=== PATIENT | male | born 1945 | race Caucasian/White ===

== ENCOUNTER 2017-09-06 05:47 | Inpatient (IN) | payer OTHER, MEDICARE ==
[~2017-09-06] VITALS: Ht 172.7 cm; Wt 70.0 kg
[2017-09-06] VITALS (15 sets, daily range): BP systolic 116–144; BP diastolic 53–63; PULSE 65–92; RESP 8–16; TEMP 97.9–99.2; O2SAT 95–99
[~2017-09-06 05:47] MED LIST: AMBI12.5; ATOR20TA42; CENTTAB9; DIAZ5; OMEP20CA5; PERC10TA26; SAWPOW; TAMS0.4C67; VIT C; VIT D; VIT E
[2017-09-06] MEDS ORDERED: VANCOMYCIN HCL 1000 MG VIAL ONE ×2 (06:29→06:44)
[2017-09-06] MEDS ORDERED: HEPARIN SODIUM - SQ 10,000 UNITS/ML VIAL ONE (06:29)
[2017-09-06] MEDS ORDERED: METOPROLOL TARTRATE 25 MG TAB PO SCH (06:30)
[2017-09-06] MEDS ORDERED: METOPROLOL TARTRATE 25 MG TAB PO PRN (06:30)
[2017-09-06] MEDS ORDERED: CHLORHEXIDINE GLUCONATE 2 % 1 PACK (2 CLOTHS) TOPICAL PRN (06:30)
[2017-09-06] MEDS ORDERED: INSULIN REGULAR 100 UNITS in NS 100 ML IV PRN (06:30)
[2017-09-06] MEDS ORDERED: INSULIN HUMAN REGULAR 1,000 UNITS/10 ML VIAL SQ PRN (06:30)
[2017-09-06] MEDS ORDERED: VANCOMYCIN 1000 MG in NS IRR BTL 1000 ML IRRIGATION SCH (06:30)
[2017-09-06] MEDS ORDERED: SODIUM CHLORID 0.9% 500 ML IV PRN (06:30)
[2017-09-06] MEDS ORDERED: POVIDONE IODINE 5% (ANTISEPSIS KIT) 4 APPLICATIONS EACH NARE PRN (06:30)
[2017-09-06] MEDS ORDERED: PAPAVERINE 60 MG-NITROGLYCERIN 100 MCG-DILTIAZEM 100 MG in NS 100 ML IRRIGATION SCH ×4 (06:30)
[2017-09-06] MEDS ORDERED: SODIUM CHLORIDE 0.9% FLUSH 10 ML FLUSH IV FLUSH PRN ×3 (06:30→12:45)
[2017-09-06] MEDS ORDERED: CHLORHEXIDINE GLUCONATE 4% SOLN 120 ML BTL TOPICAL SCH (06:30)
[2017-09-06] MEDS ORDERED: OMEP20TA93 PO (06:33)
[2017-09-06] MEDS ORDERED: ZOLP12.5 PO (06:33)
[2017-09-06] MEDS ORDERED: TAMS5CAP PO (06:33)
[2017-09-06] MEDS ORDERED: ATOR20TA15 PO (06:33)
[2017-09-06] MEDS ORDERED: OXYC1TAB36 PO (06:33)
[2017-09-06] MEDS ORDERED: DIAZ5TAB PO (06:33)
[2017-09-06] MEDS ORDERED: MULTTAB67 PO (06:33)
[2017-09-06] MEDS ORDERED: SODIUM CHLOR 0.9% 250 ML INJ 250 ML ONE (06:45)
[2017-09-06] MEDS: LACTATED RINGER'S 1000 ML IV PRN ×2 (07:00→15:35)
[2017-09-06 07:17] LABS: BLOOD, URINE NEG (NEG); COMMENT (UR) CULT NOT INDICATED; CULTURE IF INDICATED CULT NOT INDICATED; GLUCOSE,URINE NEG (NEG); KETONE, URINE NEG (NEG); MUCUS URINE FEW /lpf (OCC); NITRITE,URINE NEG (NEG); PH, URINE 7.5 (5.0-8.5); SQUAMOUS EPITHELIAL CELL URINE <1 /hpf (0-5); URINE COLOR YELLOW (YELLW/STRAW)
[2017-09-06] MEDS ORDERED: FENT50DI T-DERMAL (07:19)
[2017-09-06] MEDS ORDERED: FLUT1SPR5 EACH NARE (07:19)
[2017-09-06] MEDS: VANCOMYCIN 1000 MG/NS 250 ML IV SCH ×4 (07:25→09:30)
[2017-09-06] MEDS ORDERED: CUSTODIOL HTK IRR SOLN 2,000 ML ONE (07:54)
[2017-09-06] MEDS ORDERED: POTASSIUM CHLORIDE 40 MEQ/20 ML VIAL ONE (07:54)
[2017-09-06] MEDS ORDERED: HEPARIN SODIUM - IV 10,000 UNITS/10 ML VIAL ONE (07:55)
[2017-09-06] MEDS ORDERED: SODIUM BICARBONATE 8.4% INJ 150 ML ONE (07:55)
[2017-09-06] MEDS ORDERED: ALBUMIN 25% INJ 50 ML IV ONE (07:55)
[2017-09-06] MEDS ORDERED: MANNITOL INJ 50 ML ONE (07:56)
[2017-09-06] MEDS: MUPIROCIN 2% OINT 22 GM TUBE EACH NARE SCH ×2 (09:00→21:00)
[2017-09-06] MEDS ORDERED: SUFentanil INJ 250 MCG/5 ML AMP ONE (09:04)
[2017-09-06] MEDS ORDERED: fentaNYL CITRATE 1000 MCG/20 ML VIAL IV ONE (12:00)
[2017-09-06] MEDS ORDERED: CARDIOPLEGIC IRR 2,000 ML IRRIGATION ONE (12:00)
[2017-09-06] MEDS ORDERED: NITROGLYCERIN 50 MG/DEXTROSE 5% SOLN 250 ML BTL IV ONE (12:00)
[2017-09-06] MEDS ORDERED: PROPOFOL 500 MG/50 ML BTL IV ONE (12:00)
[2017-09-06] MEDS ORDERED: CALCIUM CHLORIDE 10% SOLN 1 GRAM/10 ML SYR IV ONE (12:00)
[2017-09-06] MEDS ORDERED: TRANEXAMIC ACID INJ 1,000 MG/10 ML AMP IV ONE (12:00)
[2017-09-06] MEDS ORDERED: ePHEDrine/NS 25 MG/5 ML SYRINGE IV ONE (12:00)
[2017-09-06] MEDS ORDERED: PHENYLEPH/NS 1000 MCG/10 ML SYR IV ONE (12:00)
[2017-09-06] MEDS ORDERED: VECURONIUM BROMIDE 10 MG VIAL IV ONE (12:00)
[2017-09-06] MEDS ORDERED: MIDAZOLAM HCL 2 MG/2 ML VIAL IV ONE (12:00)
[2017-09-06] MEDS ORDERED: MAGNESIUM SULFATE 1 GM/2 ML VIAL IV ONE (12:00)
[2017-09-06] MEDS ORDERED: HEPARIN SODIUM - SQ 10,000 UNITS/ML VIAL OTHER ONE (12:00)
[2017-09-06] MEDS ORDERED: PHENYLEPHRINE HCL 10 MG/ML VIAL IV ONE (12:00)
[2017-09-06] MEDS ORDERED: DOBUTamine PREMIX DRIP 250 ML IV SCH (12:31)
[2017-09-06] MEDS ORDERED: LACTATED RINGER'S 1000 ML INJ 500 ML IV PRN (12:31)
--- NOTE | 2017-09-06 12:40 | PD.OP ---
cc: Dinah Dorantes MD Operative Report Date of Surgery: Sep 06, 2017 Preoperative Diagnosis: Postoperative Diagnosis: Procedure: 1. Coronary Artery Bypass Grafting x 1 with left internal mammary artery (LORD) to left anterior descending (LAD) 2. Aortic Valve Replacement with 25 mm Medtronic Mosaic Tissue Valve Surgeon: Dinah Dorantes Air Brush Decorator(s): Lenny Moncada Operation and Findings: PREPROCEDURE DIAGNOSES 1. Severe Left Anterior Descending (LAD) Coronary Artery Disease. 2. Critical Aortic Valve Stenosis 3. Lymphoma s/p Radiation POSTPROCEDURE DIAGNOSES Same SURGICAL PROCEDURE 1. Coronary Artery Bypass Grafting x 1 with left internal mammary artery (LORD) to left anterior descending (LAD) 2. Aortic Valve Replacement with 25 mm Medtronic Mosaic Tissue Valve SURGEON Dinah Dorantes MD GENERATOR TECHNICIAN ANA Horn PA-C ANESTHESIA General endotracheal [employer] LETTER CARRIER Chemo White, [employer] PRODUCT CONSULTANT Silviano Mcdermott MD PREPARATION ChloraPrep. COUNTS Needle, sponge, and instrument counts were correct. DRAINS Two 32-Turkmen mediastinal tubes. COMPLICATIONS None. INDICATIONS FOR PROCEDURE The patient is a 72-year-old presenting with shortness of breath and known . Patient was noted to have proximal LAD coronary artery disease in addition to severe . The patient is being brought to the operating room for surgical revascularization and AVR therapy. PROCEDURE Patient was brought to the operating room and placed supine on the OR table. Following the induction of adequate general endotracheal anesthesia and placement of appropriate monitoring devices, the patient was prepped and draped in standard sterile fashion. A median sternotomy was performed and the left internal mammary artery dissected free off the posterior sternal table. The patient was systemically heparinized and anticoagulation monitored by serial ACT measurements. The internal mammary artery had good pulsatile flow in it and was a good-caliber conduit. The pericardium was then divided in the midline , the cradle created and target analyzed. At this point, the left internal mammary artery was anastomosed to the mid LAD (2 mm) in an end-to-side fashion using 7-0 Prolene, in an off-pump fashion using the Maquet stabilizing system. Then 2 pursestring sutures of 2-0 Ethibond were placed on the aorta proximal to the takeoff of the innominate artery, another was placed in the right atrial appendage. At this point, aortic and 2-stage venous cannulas were introduced and attached to the arterial and venous components of the bypass circuit respectively. Antegrade cardioplegia cannula and a left ventricular vent, through the right superior pulmonary vein, were also placed. The patient was placed on cardiopulmonary bypass and core cooling initiated to a temperature of 32 degrees centigrade. The crossclamp was applied and 1.5 L of cardioplegia solution (Long Term HTK) given in an antegrade fashion into the root, in addition to topical cooling with slushed saline. Upon achieving adequate diastolic arrest of the heart a transverse aortotomy was performed extending towards the non-coronary annulus. The aortic valve was noted to be very heavily calcified with the calcification extending into ascending aorta. The valve was excised and sent for microbiologic analysis. Circumferential decalcification was performed. Horizontal mattress sutures of pledgeted 2-0 Ethibond were placed circumferentially in the aortic annulus with the pledgets on the ventricular side. After adequate sizing, a 25 mm Medtronic Mosaic tissue valve was brought in the surgical field and the sutures passed through the skirt. The valve was situated supra-annular. The sutures were tied with Cor-knots. This appeared to be a good fit. Gradual rewarming was initiated and the aortotomy closed in 2 layers. This was with 4-0 Prolene; the 1st layer being horizontal mattress, the 2nd layer being running baseball stitch. The cross clamp was removed and upon achieving normothermic cardiac activity, the patient was weaned off of the cardiopulmonary bypass circuit without any difficulty. Transesophageal echocardiography revealed a well-situated aortic prosthesis with no evidence of perivalvular leak and no aortic stenosis or aortic regurgitation. Protamine was administered. Decannulation was performed and all sites were inspected for hemostasis. All anastomotic sites were inspected and appeared to be hemostatic and patent. Strict hemostasis was assured. The closure was undertaken. 2 chest tubes were placed. The pericardium was reapproximated in the midline. The sternum was approximated using sternal wires. The muscular and fascial layers were then closed in 3 layers. The endoscopic vein harvest site was closed in 2 layers. The patient tolerated the procedure well and was transferred to CVICU in stable condition. Dinah Dorantes MD Sep 06, 2017 12:40
[2017-09-06] MEDS ORDERED: ACETAMINOPHEN 325 MG TAB PO PRN (12:45)
[2017-09-06] MEDS ORDERED: INSULIN REGULAR (IV INFUSION) 100 UNITS in SODIUM CHLORIDE 0.9% INJ 99 ML IV PRN (12:45)
[2017-09-06] MEDS ORDERED: CLEVIDIPINE INJ 50 ML IV PRN (12:45)
[2017-09-06] MEDS ORDERED: Post-op Orders (for Pharmacy) OTHER ONE (12:45)
[2017-09-06] MEDS ORDERED: METOPROLOL TARTRATE 5 MG/5 ML VIAL IV PUSH PRN (12:45)
[2017-09-06] MEDS ORDERED: POTASSIUM CHLOR 20 MEQ PREMIX 100 ML IV PRN ×3 (12:45)
[2017-09-06] MEDS ORDERED: ACETAMINOPHEN 650 MG SUPP RECTAL PRN (12:45)
[2017-09-06] MEDS ORDERED: DOPamine INJ PREMIX 500 ML IV PRN (12:45)
[2017-09-06] MEDS ORDERED: DEXMEDETOMIDINE INJ 200 MCG in SODIUM CHLORIDE 0.9% INJ 50 ML IV PRN (12:45)
[2017-09-06] MEDS ORDERED: CALCIUM CHLORIDE INJ 1 GM in SODIUM CHLORIDE 0.9% INJ 100 ML IV PRN (12:45)
[2017-09-06] MEDS ORDERED: RESP: RACEPINEPHRINE 2.25% 0.5 ML NEB NEB PRN (12:45)
[2017-09-06] MEDS ORDERED: NITROGLYCERIN-D5W 50 MG/250 ML 250 ML IV PRN (12:45)
[2017-09-06] MEDS ORDERED: SODIUM BICARBONATE 8.4% SOLN 50 MEQ/50 ML VIAL IV PUSH PRN ×2 (12:45)
[2017-09-06] MEDS ORDERED: ALBUMIN 5% INJ 250 ML IV PRN (12:45)
[2017-09-06] MEDS ORDERED: POTASSIUM CHLORIDE 20 MEQ CONTROLLED RELEASE TAB PO PRN ×2 (12:45)
[2017-09-06] MEDS ORDERED: MEPERIDINE HCL 25 MG/ML VIAL IV PUSH PRN (12:45)
[2017-09-06] MEDS ORDERED: PHENYLEPHRINE INJ 40 MG in DEXTROSE 5% IN WATE 500 ML INJ 496 ML IV PRN ×2 (12:45)
[2017-09-06] MEDS ORDERED: hydrALAZINE HCL 20 MG/ML VIAL IV PUSH PRN (12:45)
[2017-09-06] MEDS ORDERED: CALCIUM CHLORIDE 10% 1 GRAM/10 ML VIAL IV PUSH PRN (12:45)
[2017-09-06] MEDS ORDERED: DEXTROSE 50% IN WATER 50 ML VIAL(D50) IV PUSH PRN (12:45)
[2017-09-06] MEDS ORDERED: RESP: ALBUTEROL 2.5 MG/IPRATROPIUM 0.5 MG NEB (PRN) NEB (12:45)
[2017-09-06] MEDS ORDERED: ACETAMINOPHEN/HYDROcodone 325 MG/5 MG TAB PO PRN (12:45)
[2017-09-06] MEDS ORDERED: MAGNESIUM SULFATE INJ 2 GM in SODIUM CHLORIDE 0.9% INJ 100 ML IV PRN ×4 (12:45)
--- NOTE | 2017-09-06 13:36 | PD.CAR.PN ---
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 nurse with c/o of progressive SOB, cardiac workup leading to cardiac cath which revealed critical prox LAD stenosis , echo showed preserved LV function with severe , pt was admitted electively for CABG and AVR PMH: , CAD ( stent) , non-Hodgkins lymphoma, discitis and osteomyelitis of spine 1997, kidney stones, chronic prostatitis Objective: Vital Signs Date Time Temp Pulse Resp B/P (MAP) Pulse Ox O2 Delivery O2 Flow Rate FiO2 09/06/17 12:57 98 50 09/06/17 07:00 98.7 74 18 151/89 (109) 97 Labs: Laboratory Tests Test 09/06/17 06:54 Urine Color YELLOW (YELLW/STRAW) Urine Turbidity HAZY (CLEAR) Urine pH 7.5 (5.0-8.5) Urine Specific [place] 1.018 (1.002-1.035) Urine Protein NEG mg/dL (NEG-TRACE) Urine Glucose (UA) NEG mg/dL (NEG) Urine Ketones NEG mg/dL (NEG) Urine Occult Blood NEG (NEG) Urine Nitrite NEG (NEG) Urine Bilirubin NEG (NEG) Urine Urobilinogen LESS THAN 2.0 MG/DL (LESS Urine Leukocyte Esterase NEG (NEG) Urine RBC 1 /hpf (0-3) Urine WBC 1 /hpf (0-5) Urine Squamous Epithelial Cells <1 /hpf (0-5) Urine Mucus FEW /lpf (OCC) Microscopic Urinalysis Comment CULT NOT INDICATED Geraldine Pino Sep 06, 2017 13:36
[2017-09-06] MEDS: DEXTROSE 50% IN WATER 50 ML VIAL(D50) IV PUSH PRN ×2 (13:38→16:18)
--- NOTE | 2017-09-06 13:41 | HHI.FF ---
Face to Face Verification Diagnosis: (1) Hx of non-Hodgkin's lymphoma (2) S/P AVR (aortic valve replacement) (3) S/P CABG x 1 (4) Coronary artery disease (5) Aortic stenosis Home Health Nursing Order: Signs/symptoms of disease process Medication education-adverse effect Wound care and dressing changes Nursing assessment with vital signs Instructions: Heart and Vascular Surgery patients *Special attention to sternal dressing Mandatory frequency Assess and evaluation, 4 days in a row The next week 3X week 2 times a week for 4 weeks 1 time a week for 5 weeks Schedule Heart and Vascular patients for full 60 day certification period Initial visit Review Open Heart Surgery Discharge Instructions (Sternal precautions, Activity, Elastic hose, Incision care, Driving, Incentive spirometry, Smoking, [place], Work and other) Need Betadine to paint incision Medication reconciliation Importance of follow up care/ check on appointments Make calendar record temperature daily When to call [facility] at Home nurse, review instructions, phone list Incentive Spirometry, demonstration Visit 1- Begin discharge instruction for patient family and/ or caregiver using teach back method- Signs and symptoms of infection Disease characteristics Medicines and side effects Foods and nutrition/ appetite Infection control/ hand washing/ hygiene Visit 2- Continue teaching Discharge instructions- include additional information on smoking cessation , sternal dressing (sternal vac) Visit 3- Continue teaching- Cough and deep breathing, incision monitoring. Choose my plate Visit 4- Continue teaching- Discuss limitations Discuss how they are feeling Discuss progress toward goals Remaining visits- continue teaching and monitoring Incentive spirometry Q1 hr x 10, while awake, also use acapella device hourly whole awake Sternal Breast Bone Precautions: NO pushing or pulling, ( pt must use sternal pillow to support chest with all activities and with coughing ( takes up to 3 months breast bone to heal ) Daily incision care: ok to shower daily, no tub bath. Wash all incisions with liquid dial soap, clean wash cloth to each site, rinse and pat dry. Observe for any signs of infection, such as drainage which is dark yellow, cantrell, green or foul smelling. Immediately report to the surgeon any drainage from the chest incision, or legs, and for any abnormal drainage from the chest tube sites. Notify surgeon if any temp >101.5 degrees F. When specialty dressing removed/ or if you do not have one, continue to shower daily as above, then rinse and pat incision dry and paint with betadine daily x 5 days. Allow steri strips to fall off if you have any. Avoid lotions, creams, salves, oils, etc. for the first month Please see attached forms for additional instructions regarding post Open Heart specialty wound vacuum dressings. VILLA or Prevena , Dressing to be removed by Nursing staff on __/ F/U appointment: as per DC instructions: PCP in 2 weeks, CV surgeon 2 weeks, [employer] 3-4 weeks For any questions regarding incisions/ dressing / meds / post op care or above Symptoms, Monday 8am-5pm Heart & Vascular Surgery Office ( Dr. Dorantes & Dr. Bhakta), After Hours / Nights (5pm -8am) Weekends and Holidays Please call [facility] Cardiac [facility] Unit ([facility]) Charge Nurse Single Use Negative Wound Therapy System Caregiver Instruction Sheet 1. A Prevena dressing system was applied to the chest incision during surgery , to promote wound healing. It works via a suction device (negative pressure wound therapy) to remove low to moderate levels of exudate (drainage) and infectious materials. We recommend that the device stay in place for up to seven days, from day of surgery. 2. Day of Surgery___// Day of Removal ____/ 3. The dressing should only be removed by a health childcare attendant. Please arrange removal of device to coincide with Home Health visit and or with Nursing staff at Rehab 4. If skin reddening or irritation of skin occurs, or excessive drainage, please notify the Cardiovascular Surgeons office at [phone]. 5. Light showering is permissible; however the pump should be disconnected and placed in safe location, where it will not get wet. The dressing should not be exposed to direct spray or submerged in water. No bath tub / shower only. Ensure the end of the tubing attached to the dressing is facing down so that water does not enter the top of the tube. 6. To remove Prevena dressing: press purple button to turn off device / remove the suction. Then disconnect the tubing from the pump. The fixation strips should be stretched away from the skin and the dressing lifted at one corner and peeled back until it has been fully removed. 7. After removal, it is ok to shower daily using liquid dial soap and clean wash cloth, rinse and pat dry, and leave incision open to air dry. For any concerns regarding Prevena dressing, and or wounds, please contact Lexis Gamble, patient navigator at [phone] or notify the Cardiovascular Surgeons office at [phone]. I have seen patient Asael Nelson on 09/06/17. My clinical findings support the need for the requested home health care services because: Deconditioned w/ increased weakness I certify that my clinical findings support that this patient is homebound because: Post-op weakness Geraldine Pino Sep 06, 2017 13:41
[2017-09-06] MEDS ORDERED: MORPHINE SULFATE 2 MG/ML INJ IV PUSH PRN (13:45)
[2017-09-06] MEDS: ACETAMINOPHEN 1000 MG/100 ML 100 ML IV SCH ×2 (13:47→17:33)
--- NOTE | 2017-09-06 14:32 | RADRPT ---
EXAM DATE/TIME: 09/06/2017 13:33 [facility] COMPARISON: No previous studies available for comparison. INDICATIONS : Post CABG. MEDICAL HISTORY : Heart. SURGICAL HISTORY : None. ENCOUNTER: Initial ACUITY: 1 day PAIN SCORE: Non-responsive. LOCATION: Bilateral chest FINDINGS: ETT at the level of the clavicles. Right IJ central line with tip in the proximal right atrium. Media stinal drains and left apical chest tube in place. Mild bibasilar patchy airspace disease. Cardiomedi astinal contours are within normal limits. Bony thorax is intact. CONCLUSION: 1. Expected immediate post surgical features of CABG with tubes and lines, as above. 2. Patchy bilateral lower lobe airspace disease, likely atelectasis. Ricky Jhaveri MD on September 06, 2017 at 14:26 Board Certified Radiologist. This report was verified electronically.
[2017-09-06] MEDS: KETOROLAC TROMETHAMINE 30 MG/ML (IVP) VIAL IV PUSH PRN ×2 (15:17→21:14)
[2017-09-06] MEDS: RESP: ALBUTEROL 2.5 MG/IPRATROPIUM 0.5 MG NEB (SCH) NEB ×2 (16:04→20:51)
[2017-09-06] MEDS: SODIUM CHLORIDE 0.9% FLUSH 10 ML FLUSH IV FLUSH SCH (21:00)
[2017-09-06] MEDS: VANCOMYCIN INJ 1,000 MG in SODIUM CHLOR 0.9% 250 ML INJ 250 ML IV SCH (22:19)
[2017-09-06] MEDS: AMIODARONE 200 MG TAB PO SCH (23:11)
[2017-09-07] VITALS (17 sets, daily range): BP systolic 81–139; BP diastolic 53–68; PULSE 80–109; RESP 12–18; TEMP 98–99.8; O2SAT 92–98
[2017-09-07] MEDS: ACETAMINOPHEN/HYDROcodone 325 MG/5 MG TAB PO PRN ×6 (00:25→22:38)
[2017-09-07] MEDS: ACETAMINOPHEN 1000 MG/100 ML 100 ML IV SCH ×2 (00:32→08:42)
[2017-09-07] MEDS: ONDANSETRON HCL 4 MG/2 ML VIAL IV PUSH PRN (01:32)
[2017-09-07] MEDS: KETOROLAC TROMETHAMINE 30 MG/ML (IVP) VIAL IV PUSH PRN ×2 (02:26→09:09)
[2017-09-07] MEDS: RESP: ALBUTEROL 2.5 MG/IPRATROPIUM 0.5 MG NEB (SCH) NEB ×5 (03:53→19:38)
[2017-09-07 05:55] LABS: HEMATOCRIT 29.6 % (39.0-51.0); MEAN CELL VOLUME 87.1 FL (80.0-100.0); MEAN CORPUSCULAR HEMOGLOBIN 29.6 PG (27.0-34.0); PLATELET COUNT 150 TH/MM3 (150-450); RED CELL DISTRIBUTION WIDTH 13.3 % (11.6-17.2); REVIEW FLAG FINAL; WHITE BLOOD COUNT 12.4 TH/MM3 (4.0-11.0)
[2017-09-07 06:01] LABS: BICARBONATE 26.5 MEQ/L (21.0-32.0); POTASSIUM 3.8 MEQ/L (3.5-5.1)
--- NOTE | 2017-09-07 06:15 | RADRPT ---
EXAM DATE/TIME: 09/07/2017 04:48 [facility] COMPARISON: CHEST SINGLE AP, September 06, 2017, 13:33. INDICATIONS : Shortness of breath, possible pneumothorax. MEDICAL HISTORY : Cardiac disease. SURGICAL HISTORY : CABG. ENCOUNTER: Subsequent ACUITY: 2 days PAIN SCORE: 10/10 LOCATION: Bilateral chest FINDINGS: Interval extubation and removal of gastric tube. Right mediastinal and left chest drainage tubes sta ble in position. Right internal jugular catheter tip at the cavoatrial junction. Persistent partial ly consolidative infiltrates in the left lower lung and non-consolidative traits of the right lung. The heart is normal size. Stable sternal wire sutures. CONCLUSION: Persistent left lower lung consolidative infiltrates and non-consolidative infiltrates in the right l ower lung. Gurdeep Umanzor MD on September 07, 2017 at 6:12 Board Certified Radiologist. This report was verified electronically.
[2017-09-07] MEDS: PANTOPRAZOLE SOD 40 MG DELAYED RELEASE TAB PO SCH (06:29)
[2017-09-07] MEDS: MUPIROCIN 2% OINT 22 GM TUBE EACH NARE SCH (08:39)
[2017-09-07] MEDS: ASPIRIN 81 MG CHEW TAB PO SCH (08:39)
[2017-09-07] MEDS: AMIODARONE 200 MG TAB PO SCH ×2 (08:39→21:00)
[2017-09-07] MEDS: SODIUM CHLORIDE 0.9% FLUSH 10 ML FLUSH IV FLUSH SCH ×2 (08:39→21:01)
[2017-09-07] MEDS ORDERED: SOD PHOSPHATE/SOD BIPHOSPHATE (ADULT) ENEMA 133ML RECTAL PRN (09:00)
[2017-09-07] MEDS ORDERED: BISACODYL 10 MG SUPP RECTAL PRN (09:00)
[2017-09-07] MEDS ORDERED: GLUCAGON 1 MG/ML VIAL OTHER PRN (09:00)
[2017-09-07] MEDS ORDERED: DEXTROSE 50% IN WATER 50 ML VIAL(D50) IV PUSH PRN (09:00)
[2017-09-07] MEDS ORDERED: MULTIVITAMIN INJ 10 ML, THIAMINE INJ 500 MG, FOLIC ACID INJ 1 MG in SODIUM CHLORID 0.9%... IV SCH (09:00)
--- NOTE | 2017-09-07 09:07 | PD.CAR.PN ---
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 Coronary Artery Bypass Grafting x 1 with left internal mammary artery (LORD) to left anterior descending (LAD) 2. Aortic Valve Replacement with 25 mm Medtronic Mosaic Tissue Valve extubated after surgery , crystalloid 2500cc, 500cc cell saver , EBL 1500cc, urine 1900cc 09/07 up in chair , on nasal cannula weaning off insulin gtt asking about his fentanly patch , will use prn fentanly IV today / with po meds , eval to resume patch in am OOB, pulm toileting transfer to stepdown Objective: GENERAL: A&O x 3 SKIN: Warm and dry. prevena to chest , has small skin tear on left upper back HEAD: Normocephalic. EYES: No scleral icterus. No injection or drainage. NECK: Supple, trachea midline. No JVD or lymphadenopathy. CARDIOVASCULAR: Regular rate and rhythm without murmurs, gallops, or rubs. RESPIRATORY: Breath sounds equal bilaterally. No accessory muscle use. diminished in bases, chest tube 335/ 12 hrs no air leak GASTROINTESTINAL: Abdomen soft, non-tender, nondistended. MUSCULOSKELETAL: No cyanosis, or edema. BACK: Nontender without obvious deformity. No CVA tenderness. Vital Signs Date Time Temp Pulse Resp B/P (MAP) Pulse Ox O2 Delivery O2 Flow Rate FiO2 09/07/17 07:45 16 09/07/17 05:30 90 121/63 09/07/17 04:00 93 Nasal Cannula 2.00 09/07/17 03:26 14 09/07/17 03:00 80 09/07/17 03:00 99.8 80 12 121/64 (83) 96 139/55 (83) 09/07/17 01:02 14 09/07/17 00:00 97 Nasal Cannula 2.00 09/06/17 23:00 78 09/06/17 23:00 99.2 92 12 116/62 (80) 96 130/61 (84) 09/06/17 20:57 99 Nasal Cannula 3.00 09/06/17 20:55 14 09/06/17 20:00 95 Nasal Cannula 3.00 09/06/17 19:00 99.0 78 14 123/62 (82) 95 128/63 (84) 09/06/17 19:00 78 09/06/17 17:33 98.8 75 15 127/60 (82) 99 09/06/17 17:00 98.5 09/06/17 17:00 88 151/84 09/06/17 16:33 98.2 90 14 144/58 (86) 99 09/06/17 16:00 83 09/06/17 16:00 Nasal Cannula 4.00 09/06/17 15:33 98.1 78 16 129/56 (80) 99 09/06/17 15:25 98 Nasal Cannula 4 09/06/17 15:25 98 Nasal Cannula 4.00 09/06/17 15:00 97.9 09/06/17 15:00 65 09/06/17 14:33 97.9 69 8 122/53 (76) 99 09/06/17 13:33 97.9 69 8 127/60 (82) 98 09/06/17 13:00 97.9 09/06/17 13:00 67 09/06/17 13:00 Mechanical Ventilator 40 09/06/17 12:57 98 50 09/06/17 12:33 97.9 68 8 127/56 (79) 99 Labs: Laboratory Tests Test 09/07/17 05:16 White Blood Count 12.4 TH/MM3 (4.0-11.0) Red Blood Count 3.40 MIL/MM3 (4.50-5.90) Hemoglobin 10.1 GM/DL (13.0-17.0) Hematocrit 29.6 % (39.0-51.0) Mean Corpuscular Volume 87.1 FL (80.0-100.0) Mean Corpuscular Hemoglobin 29.6 PG (27.0-34.0) Mean Corpuscular Hemoglobin Concent 34.0 % (32.0-36.0) Red Cell Distribution Width 13.3 % (11.6-17.2) Platelet Count 150 TH/MM3 (150-450) Mean Platelet Volume 8.5 FL (7.0-11.0) Blood Urea Nitrogen 23 MG/DL (7-18) Creatinine 1.00 MG/DL (0.60-1.30) Random Glucose 114 MG/DL (74-106) Calcium Level 8.1 MG/DL (8.5-10.1) Magnesium Level 2.0 MG/DL (1.5-2.5) Sodium Level 142 MEQ/L (136-145) Potassium Level 3.8 MEQ/L (3.5-5.1) Chloride Level 108 MEQ/L (98-107) Carbon Dioxide Level 26.5 MEQ/L (21.0-32.0) Anion Gap 8 MEQ/L (5-15) Estimat Glomerular Filtration Rate 74 ML/MIN (>89) Result Diagram: 09/07/1751509/07/17515 Telemetry: NSR (1) Chronic pain Plan: resume fentanyl patch in am (2) Coronary artery disease (3) Aortic stenosis (4) S/P AVR (aortic valve replacement) (5) S/P CABG x 1 Plan: ASA, statin , BB , amiodarone pulm toileting OOB, ambulate leave chest tubes in pain control (6) Hx of non-Hodgkin's lymphoma Geraldine Pino Sep 07, 2017 09:07
[2017-09-07] MEDS: VANCOMYCIN INJ 1,000 MG in SODIUM CHLOR 0.9% 250 ML INJ 250 ML IV SCH ×2 (09:08→22:22)
[2017-09-07] MEDS: ATORVASTATIN 20 MG TAB PO SCH (09:15)
[2017-09-07] MEDS: INSULIN ASPART SUPPLEMENTAL SCALE SQ SCH ×4 (10:00→20:59)
[2017-09-07] MEDS: METOPROLOL TARTRATE 25 MG TAB PO SCH ×2 (11:08→21:00)
[2017-09-07] MEDS: MAGNESIUM HYDROXIDE SUSP 30 ML CUP PO SCH (11:08)
[2017-09-07] MEDS: DOCUSATE SODIUM 100 MG CAP PO SCH ×2 (11:08→20:59)
[2017-09-07] MEDS: MULTIVITAMINS/MINERALS THERAPEUTIC TAB PO SCH (11:09)
--- NOTE | 2017-09-07 16:05 | EKG ---
Date Performed: 09/07/2017 Time Performed: 04:00:10 PTAGE: 72 years EKG: Sinus rhythm Normal ECG PREVIOUS TRACING : 05/08/2007 12.46 Since the prior tracing, the patient has developed nonspeci fic inferolateral ST elevation. The finding is nonspecific, but it is new and myocardial injury shoul d be excluded clinically. DOCTOR: Diana Goins Interpretating Date/Time 09/07/2017 16:03:19
[2017-09-07] MEDS: TAMSULOSIN HCL 0.4 MG CAP PO SCH (21:00)
[2017-09-07] MEDS: SENNOSIDES 8.6 MG TAB PO SCH (21:00)
[2017-09-08] VITALS (27 sets, daily range): BP systolic 90–109; BP diastolic 51–62; PULSE 68–100; RESP 16–18; TEMP 97.9–98.8; O2SAT 95–100
[2017-09-08] MEDS: INSULIN ASPART SUPPLEMENTAL SCALE SQ SCH ×5 (01:54→21:00)
[2017-09-08] MEDS: ACETAMINOPHEN/HYDROcodone 325 MG/5 MG TAB PO PRN ×7 (02:31→21:15)
[2017-09-08] MEDS: RESP: ALBUTEROL 2.5 MG/IPRATROPIUM 0.5 MG NEB (SCH) NEB ×6 (04:00→22:00)
[2017-09-08 04:46] LABS: BASOPHIL % 0.1 % (0.0-2.0); HEMATOCRIT 24.4 % (39.0-51.0); HEMO FLAGS DIFF FINAL; LYMPH % 9.6 % (9.0-44.0); MEAN CELL VOLUME 87.9 FL (80.0-100.0); MEAN CORPUSCULAR HEMOGLOBIN 29.9 PG (27.0-34.0); NEUT % 83.3 % (16.0-70.0); PLATELET COUNT 115 TH/MM3 (150-450); RED BLOOD COUNT 2.77 MIL/MM3 (4.50-5.90); RED CELL DISTRIBUTION WIDTH 13.8 % (11.6-17.2); WHITE BLOOD COUNT 10.9 TH/MM3 (4.0-11.0)
[2017-09-08 05:13] LABS: BICARBONATE 28.6 MEQ/L (21.0-32.0); MAGNESIUM 2.6 MG/DL (1.5-2.5); POTASSIUM 4.4 MEQ/L (3.5-5.1)
[2017-09-08] MEDS: PANTOPRAZOLE SOD 40 MG DELAYED RELEASE TAB PO SCH (05:44)
[2017-09-08] MEDS: AMIODARONE 200 MG TAB PO SCH ×2 (08:46→21:15)
[2017-09-08] MEDS: POLYETHYLENE GLYCOL 17 GM PKG PO SCH (08:46)
[2017-09-08] MEDS: DOCUSATE SODIUM 100 MG CAP PO SCH ×2 (08:47→21:15)
[2017-09-08] MEDS: METOPROLOL TARTRATE 25 MG TAB PO SCH ×2 (08:47→21:15)
[2017-09-08] MEDS: MULTIVITAMINS/MINERALS THERAPEUTIC TAB PO SCH (08:47)
[2017-09-08] MEDS: ATORVASTATIN 20 MG TAB PO SCH (08:47)
[2017-09-08] MEDS: MAGNESIUM HYDROXIDE SUSP 30 ML CUP PO SCH (08:47)
[2017-09-08] MEDS: ASPIRIN 81 MG CHEW TAB PO SCH (08:47)
[2017-09-08] MEDS: SODIUM CHLORIDE 0.9% FLUSH 10 ML FLUSH IV FLUSH SCH ×2 (08:48→21:00)
[2017-09-08] MEDS: FERROUS SULFATE 325 MG (65 MG ELEMENTAL IRON) TAB PO SCH ×2 (12:12→16:12)
[2017-09-08] MEDS ORDERED: LACTATED RINGER'S 1000 ML INJ 1,000 ML IV ONE (15:00)
[2017-09-08] MEDS ORDERED: POTASSIUM CHLORIDE 8 MEQ CONTROLLED RELEASE TAB PO ONE (15:30)
[2017-09-08] MEDS ORDERED: FUROSEMIDE 20 MG/2 ML VIAL IV PUSH ONE (15:30)
--- NOTE | 2017-09-08 15:31 | PD.CAR.PN ---
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 Coronary Artery Bypass Grafting x 1 with left internal mammary artery (LORD) to left anterior descending (LAD) 2. Aortic Valve Replacement with 25 mm Medtronic Mosaic Tissue Valve extubated after surgery , crystalloid 2500cc, 500cc cell saver , EBL 1500cc, urine 1900cc 09/07 up in chair , on nasal cannula weaning off insulin gtt asking about his fentanly patch , will use prn fentanly IV today / with po meds , eval to resume patch in am OOB, pulm toileting transfer to stepdown 09/08 chest tube drained 60cc bloody drainage, will leave in today HGB 8.3/ recheck in am, start ferrous sulfate , gentle diuresis low grade temp / encourage pulm toileting OOB/ ambulate patch wants to hold on starting his fentanly patch for now Objective: GENERAL: SKIN: Warm and dry. prevena to chest , slightly pale HEAD: Normocephalic. EYES: No scleral icterus. No injection or drainage. NECK: Supple, trachea midline. No JVD or lymphadenopathy. CARDIOVASCULAR: Regular rate and rhythm without murmurs, gallops, or rubs. RESPIRATORY: Breath sounds equal bilaterally. No accessory muscle use diminished in bases . GASTROINTESTINAL: Abdomen soft, non-tender, nondistended. MUSCULOSKELETAL: No cyanosis, or edema. BACK: Nontender without obvious deformity. No CVA tenderness. Vital Signs Date Time Temp Pulse Resp B/P (MAP) Pulse Ox O2 Delivery O2 Flow Rate FiO2 09/08/17 15:00 96 09/08/17 15:00 98.1 91 18 97/54 (68) 99 09/08/17 15:00 100 Nasal Cannula 3.00 09/08/17 14:00 92 09/08/17 13:00 78 09/08/17 12:00 78 09/08/17 11:00 97.9 68 18 98/55 (69) 100 09/08/17 11:00 87 09/08/17 11:00 100 Nasal Cannula 3.00 09/08/17 10:00 88 09/08/17 09:00 92 09/08/17 08:00 96 09/08/17 07:58 99 Nasal Cannula 2.00 09/08/17 07:38 87 09/08/17 07:38 98.1 91 16 109/62 (78) 95 09/08/17 07:38 95 Nasal Cannula 3.00 09/08/17 06:55 18 09/08/17 06:00 85 09/08/17 05:03 81 09/08/17 04:00 81 09/08/17 03:00 95 Nasal Cannula 1.00 09/08/17 03:00 82 09/08/17 03:00 98.7 95 17 106/60 (75) 96 09/08/17 02:00 80 09/08/17 01:07 80 09/08/17 00:02 100 09/07/17 23:00 93 Nasal Cannula 2.00 09/07/17 23:00 82 09/07/17 23:00 98.1 100 18 119/58 (78) 98 09/07/17 22:00 88 09/07/17 20:00 94 09/07/17 19:44 92 Nasal Cannula 2.00 09/07/17 19:00 93 Room Air 09/07/17 19:00 98.3 91 18 81/59 (66) 93 09/07/17 19:00 97 09/07/17 18:17 98 09/07/17 17:31 92 09/07/17 16:27 89 09/07/17 15:37 97 Nasal Cannula 1.00 09/07/17 15:19 98.1 89 18 102/56 (71) 96 Labs: Laboratory Tests Test 09/08/17 04:30 White Blood Count 10.9 TH/MM3 (4.0-11.0) Red Blood Count 2.77 MIL/MM3 (4.50-5.90) Hemoglobin 8.3 GM/DL (13.0-17.0) Hematocrit 24.4 % (39.0-51.0) Mean Corpuscular Volume 87.9 FL (80.0-100.0) Mean Corpuscular Hemoglobin 29.9 PG (27.0-34.0) Mean Corpuscular Hemoglobin Concent 34.0 % (32.0-36.0) Red Cell Distribution Width 13.8 % (11.6-17.2) Platelet Count 115 TH/MM3 (150-450) Mean Platelet Volume 8.3 FL (7.0-11.0) Neutrophils (%) (Auto) 83.3 % (16.0-70.0) Lymphocytes (%) (Auto) 9.6 % (9.0-44.0) Monocytes (%) (Auto) 7.0 % (0.0-8.0) Eosinophils (%) (Auto) 0.0 % (0.0-4.0) Basophils (%) (Auto) 0.1 % (0.0-2.0) Neutrophils # (Auto) 9.0 TH/MM3 (1.8-7.7) Lymphocytes # (Auto) 1.0 TH/MM3 (1.0-4.8) Monocytes # (Auto) 0.8 TH/MM3 (0-0.9) Eosinophils # (Auto) 0.0 TH/MM3 (0-0.4) Basophils # (Auto) 0.0 TH/MM3 (0-0.2) CBC Comment DIFF FINAL Differential Comment Blood Urea Nitrogen 37 MG/DL (7-18) Creatinine 1.15 MG/DL (0.60-1.30) Random Glucose 121 MG/DL (74-106) Calcium Level 8.1 MG/DL (8.5-10.1) Magnesium Level 2.6 MG/DL (1.5-2.5) Sodium Level 138 MEQ/L (136-145) Potassium Level 4.4 MEQ/L (3.5-5.1) Chloride Level 105 MEQ/L (98-107) Carbon Dioxide Level 28.6 MEQ/L (21.0-32.0) Anion Gap 4 MEQ/L (5-15) Estimat Glomerular Filtration Rate 63 ML/MIN (>89) Result Diagram: 09/08/1742909/08/17429 (1) Chronic pain Plan: pt wants to hold on starting fentanly patch IV prn fentanly (2) Coronary artery disease Plan: ASA, statin BB amiodarone (3) Aortic stenosis (4) S/P AVR (aortic valve replacement) (5) S/P CABG x 1 Plan: ASA, statin , BB , amiodarone pulm toileting OOB, ambulate leave chest tubes in pain control (6) Hx of non-Hodgkin's lymphoma (7) Blood loss anemia Plan: start ferrous sulfate Geraldine Pino Sep 08, 2017 15:31
[2017-09-08] MEDS: ONDANSETRON HCL 4 MG/2 ML VIAL IV PUSH PRN (17:28)
[2017-09-08] MEDS: TAMSULOSIN HCL 0.4 MG CAP PO SCH (20:56)
[2017-09-08] MEDS: SENNOSIDES 8.6 MG TAB PO SCH (21:15)
[2017-09-09] VITALS (33 sets, daily range): BP systolic 93–118; BP diastolic 50–68; PULSE 72–106; RESP 16–20; TEMP 97.2–98.9; O2SAT 93–98
[2017-09-09] MEDS: ACETAMINOPHEN/HYDROcodone 325 MG/5 MG TAB PO PRN ×7 (01:10→21:33)
[2017-09-09] MEDS: PANTOPRAZOLE SOD 40 MG DELAYED RELEASE TAB PO SCH (05:00)
[2017-09-09] MEDS: RESP: ALBUTEROL 2.5 MG/IPRATROPIUM 0.5 MG NEB (SCH) NEB ×5 (05:10→21:19)
[2017-09-09 05:24] LABS: HEMATOCRIT 21.8 % (39.0-51.0); MEAN CORPUSCULAR HEMOGLOBIN 30.5 PG (27.0-34.0); MEAN CORPUSCULAR HGB CONC 34.7 % (32.0-36.0); PLATELET COUNT 107 TH/MM3 (150-450); RED BLOOD COUNT 2.48 MIL/MM3 (4.50-5.90); RED CELL DISTRIBUTION WIDTH 13.7 % (11.6-17.2); REVIEW FLAG FINAL; WHITE BLOOD COUNT 8.8 TH/MM3 (4.0-11.0)
[2017-09-09] MEDS: INSULIN ASPART SUPPLEMENTAL SCALE SQ SCH ×4 (08:00→21:00)
[2017-09-09] MEDS: METOPROLOL TARTRATE 25 MG TAB PO SCH ×2 (08:31→21:31)
[2017-09-09] MEDS: ATORVASTATIN 20 MG TAB PO SCH (08:32)
[2017-09-09] MEDS: AMIODARONE 200 MG TAB PO SCH ×2 (08:32→21:31)
[2017-09-09] MEDS: ASPIRIN 81 MG CHEW TAB PO SCH (08:32)
[2017-09-09] MEDS: DOCUSATE SODIUM 100 MG CAP PO SCH ×2 (08:32→21:00)
[2017-09-09] MEDS: CLOPIDOGREL 75 MG TAB PO SCH (08:32)
[2017-09-09] MEDS: MULTIVITAMINS/MINERALS THERAPEUTIC TAB PO SCH (08:32)
[2017-09-09] MEDS: MAGNESIUM HYDROXIDE SUSP 30 ML CUP PO SCH (08:33)
[2017-09-09] MEDS: POLYETHYLENE GLYCOL 17 GM PKG PO SCH (08:33)
[2017-09-09] MEDS: SODIUM CHLORIDE 0.9% FLUSH 10 ML FLUSH IV FLUSH SCH ×2 (08:33→21:32)
--- NOTE | 2017-09-09 09:29 | EKG ---
Date Performed: 09/08/2017 Time Performed: 09:54:26 PTAGE: 72 years EKG: CONSIDER ACUTE ST ELEVATION SC Sinus rhythm Lateral ST elevation, CONSIDER ACUTE INFARCT Abnormal ECG NO PREVIOUS TRACING DOCTOR: Wing Negron Interpretating Date/Time 09/09/2017 09:28:19
--- NOTE | 2017-09-09 09:53 | PD.CAR.PN ---
CVT Progress Note Subjective/Hospital Course: 72yr / male eval by gift consultant with c/o of progressive SOB, cardiac workup leading to cardiac cath which revealed critical prox LAD stenosis , echo showed preserved LV function with severe , pt was admitted electively for CABG and AVR PMH: , CAD ( stent) , non-Hodgkins lymphoma, discitis and osteomyelitis of spine 1997, kidney stones, chronic prostatitis surgery : 09/06 1. Coronary Artery Bypass Grafting x 1 with left internal mammary artery (LORD) to left anterior descending (LAD) 2. Aortic Valve Replacement with 25 mm Medtronic Mosaic Tissue Valve extubated after surgery , crystalloid 2500cc, 500cc cell saver , EBL 1500cc, urine 1900cc 09/07 up in chair , on nasal cannula weaning off insulin gtt asking about his fentanly patch , will use prn fentanly IV today / with po meds , eval to resume patch in am OOB, pulm toileting transfer to stepdown 09/08 chest tube drained 60cc bloody drainage, will leave in today HGB 8.3/ recheck in am, start ferrous sulfate , gentle diuresis low grade temp / encourage pulm toileting OOB/ ambulate patch wants to hold on starting his fentanly patch for now 09/09/17 c/o dizziness, fatigue Objective: Vital Signs Date Time Temp Pulse Resp B/P (MAP) Pulse Ox O2 Delivery O2 Flow Rate FiO2 09/09/17 09:00 82 09/09/17 08:30 93 21 09/09/17 08:00 80 09/09/17 07:00 79 09/09/17 07:00 97.9 84 18 100/59 (73) 93 09/09/17 07:00 93 Room Air 09/09/17 06:00 80 09/09/17 05:00 95 09/09/17 04:00 93 09/09/17 03:40 93 Room Air 09/09/17 03:40 97.3 80 18 104/58 (73) 93 09/09/17 03:00 80 09/09/17 02:00 86 09/09/17 01:00 88 09/09/17 00:00 82 09/08/17 23:20 95 Room Air 09/08/17 23:20 98.8 85 18 90/51 (64) 95 09/08/17 23:00 87 09/08/17 22:00 80 09/08/17 22:00 98 Room Air 09/08/17 21:00 80 09/08/17 20:40 Room Air 09/08/17 20:30 96 Nasal Cannula 1.50 09/08/17 20:30 98.2 90 18 108/57 (74) 96 09/08/17 20:00 97 Nasal Cannula 2.00 09/08/17 20:00 92 09/08/17 19:00 77 09/08/17 18:00 78 09/08/17 17:00 88 09/08/17 16:00 82 09/08/17 15:00 96 09/08/17 15:00 98.1 91 18 97/54 (68) 99 09/08/17 15:00 100 Nasal Cannula 3.00 09/08/17 14:00 92 09/08/17 13:00 78 09/08/17 12:00 78 09/08/17 11:00 97.9 68 18 98/55 (69) 100 09/08/17 11:00 87 09/08/17 11:00 100 Nasal Cannula 3.00 09/08/17 10:00 88 Labs: Laboratory Tests Test 09/09/17 05:00 White Blood Count 8.8 TH/MM3 (4.0-11.0) Red Blood Count 2.48 MIL/MM3 (4.50-5.90) Hemoglobin 7.6 GM/DL (13.0-17.0) Hematocrit 21.8 % (39.0-51.0) Mean Corpuscular Volume 88.0 FL (80.0-100.0) Mean Corpuscular Hemoglobin 30.5 PG (27.0-34.0) Mean Corpuscular Hemoglobin Concent 34.7 % (32.0-36.0) Red Cell Distribution Width 13.7 % (11.6-17.2) Platelet Count 107 TH/MM3 (150-450) Mean Platelet Volume 8.6 FL (7.0-11.0) Result Diagram: 09/09/17 0500 09/08/17 0430 Cardiovascular: RRR Telemetry: NSR Pulmonary: CTA GI/: NABS, NT Incision: dry and intact CT: 230ml dark bloody/12 hours Plan: Transfuse 2u pRBC Diurese Encourage ambulation Chest tube output too high to pull tubes today Cont. BB, statin, ASA (1) Chronic pain Plan: pt wants to hold on starting fentanly patch IV prn fentanly (2) Coronary artery disease Plan: ASA, statin BB amiodarone (3) Aortic stenosis (4) S/P AVR (aortic valve replacement) (5) S/P CABG x 1 Plan: ASA, statin , BB , amiodarone pulm toileting OOB, ambulate leave chest tubes in pain control (6) Hx of non-Hodgkin's lymphoma (7) Blood loss anemia Plan: start ferrous sulfate Caridad Bhakta MD Sep 09, 2017 09:53
[2017-09-09] MEDS ORDERED: SODIUM CHLOR 0.9% 250 ML INJ 250 ML IV ONE (10:00)
[2017-09-09] MEDS: FERROUS SULFATE 325 MG (65 MG ELEMENTAL IRON) TAB PO SCH ×2 (11:02→17:00)
[2017-09-09] MEDS: ONDANSETRON HCL 4 MG/2 ML VIAL IV PUSH PRN ×2 (15:37→21:44)
[2017-09-09] MEDS: SENNOSIDES 8.6 MG TAB PO SCH (21:00)
[2017-09-09] MEDS: TAMSULOSIN HCL 0.4 MG CAP PO SCH (21:30)
[2017-09-09] MEDS: FUROSEMIDE 40 MG/4 ML VIAL IV PUSH SCH (23:06)
[2017-09-10] VITALS (32 sets, daily range): BP systolic 79–124; BP diastolic 50–64; PULSE 74–92; RESP 16–18; TEMP 97.9–99.4; O2SAT 90–97
[2017-09-10] MEDS: ACETAMINOPHEN/HYDROcodone 325 MG/5 MG TAB PO PRN ×6 (00:54→21:30)
[2017-09-10] MEDS: FUROSEMIDE 40 MG/4 ML VIAL IV PUSH SCH (05:01)
[2017-09-10] MEDS: PANTOPRAZOLE SOD 40 MG DELAYED RELEASE TAB PO SCH (05:08)
[2017-09-10 05:57] LABS: HEMATOCRIT 27.9 % (39.0-51.0); MEAN CELL VOLUME 85.8 FL (80.0-100.0); MEAN CORPUSCULAR HEMOGLOBIN 30.1 PG (27.0-34.0); MEAN CORPUSCULAR HGB CONC 35.1 % (32.0-36.0); PLATELET COUNT 138 TH/MM3 (150-450); RED BLOOD COUNT 3.25 MIL/MM3 (4.50-5.90); RED CELL DISTRIBUTION WIDTH 14.4 % (11.6-17.2); REVIEW FLAG FINAL; WHITE BLOOD COUNT 7.5 TH/MM3 (4.0-11.0)
[2017-09-10] MEDS: RESP: ALBUTEROL 2.5 MG/IPRATROPIUM 0.5 MG NEB (SCH) NEB ×3 (06:01→15:55)
[2017-09-10 06:19] LABS: BICARBONATE 30.7 MEQ/L (21.0-32.0); POTASSIUM 3.7 MEQ/L (3.5-5.1)
[2017-09-10] MEDS: INSULIN ASPART SUPPLEMENTAL SCALE SQ SCH ×4 (08:00→21:00)
[2017-09-10] MEDS: ATORVASTATIN 20 MG TAB PO SCH (08:53)
[2017-09-10] MEDS: METOPROLOL TARTRATE 25 MG TAB PO SCH ×2 (08:54→21:34)
[2017-09-10] MEDS: CLOPIDOGREL 75 MG TAB PO SCH (08:54)
[2017-09-10] MEDS: MULTIVITAMINS/MINERALS THERAPEUTIC TAB PO SCH (08:54)
[2017-09-10] MEDS: ASPIRIN 81 MG CHEW TAB PO SCH (08:54)
[2017-09-10] MEDS: AMIODARONE 200 MG TAB PO SCH ×2 (08:54→21:30)
[2017-09-10] MEDS: POLYETHYLENE GLYCOL 17 GM PKG PO SCH (08:57)
[2017-09-10] MEDS: MAGNESIUM HYDROXIDE SUSP 30 ML CUP PO SCH (08:57)
[2017-09-10] MEDS: SODIUM CHLORIDE 0.9% FLUSH 10 ML FLUSH IV FLUSH SCH ×2 (08:57→21:36)
[2017-09-10] MEDS: DOCUSATE SODIUM 100 MG CAP PO SCH ×2 (08:57→21:00)
--- NOTE | 2017-09-10 10:34 | PD.CAR.PN ---
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 Coronary Artery Bypass Grafting x 1 with left internal mammary artery (LORD) to left anterior descending (LAD) 2. Aortic Valve Replacement with 25 mm Medtronic Mosaic Tissue Valve extubated after surgery , crystalloid 2500cc, 500cc cell saver , EBL 1500cc, urine 1900cc 09/07 up in chair , on nasal cannula weaning off insulin gtt asking about his fentanly patch , will use prn fentanly IV today / with po meds , eval to resume patch in am OOB, pulm toileting transfer to stepdown 09/08 chest tube drained 60cc bloody drainage, will leave in today HGB 8.3/ recheck in am, start ferrous sulfate , gentle diuresis low grade temp / encourage pulm toileting OOB/ ambulate patch wants to hold on starting his fentanly patch for now 09/09/17 c/o dizziness, fatigue 09/10/17 No complaints. Feeling better post transfusion. Objective: Vital Signs Date Time Temp Pulse Resp B/P (MAP) Pulse Ox O2 Delivery O2 Flow Rate FiO2 09/10/17 10:00 91 09/10/17 09:00 90 09/10/17 08:00 78 09/10/17 07:15 97 Room Air 09/10/17 07:15 98.3 90 16 113/57 (75) 97 09/10/17 07:15 81 09/10/17 06:00 90 09/10/17 05:26 98.7 86 16 99/57 (71) 94 09/10/17 05:20 94 Room Air 09/10/17 05:00 85 09/10/17 04:00 74 09/10/17 03:00 76 09/10/17 02:35 98.2 86 16 103/59 93 09/10/17 02:00 98.1 87 16 89/54 93 09/10/17 02:00 90 09/10/17 01:30 98.1 85 16 95/52 92 09/10/17 01:15 98.3 82 16 100/53 92 09/10/17 01:00 98.4 92 16 91/64 90 09/10/17 01:00 90 09/10/17 00:42 98.3 92 16 79/54 92 09/10/17 00:30 98.9 83 16 95/53 (67) 93 09/10/17 00:00 80 09/09/17 23:00 97 Room Air 09/09/17 23:00 75 09/09/17 22:00 82 09/09/17 21:51 97.2 81 16 118/67 98 09/09/17 21:00 78 09/09/17 20:35 98.7 106 20 106/57 94 09/09/17 20:30 96 Room Air 09/09/17 20:30 98.2 74 20 106/57 95 09/09/17 20:30 98.9 86 16 105/59 (74) 96 09/09/17 20:16 98.9 82 18 102/55 94 09/09/17 20:00 84 09/09/17 19:00 106 09/09/17 18:30 88 20 110/58 95 09/09/17 18:00 80 09/09/17 18:00 98.7 80 20 103/58 95 09/09/17 17:30 98.1 86 20 93/68 93 09/09/17 17:00 97.4 83 18 102/58 97 09/09/17 17:00 88 09/09/17 16:40 97.8 80 18 101/55 97 09/09/17 16:00 97.9 72 18 101/50 (67) 97 09/09/17 16:00 97 Room Air 09/09/17 16:00 78 09/09/17 16:00 98.1 74 18 94/50 96 09/09/17 15:00 92 09/09/17 14:00 74 09/09/17 13:00 78 09/09/17 12:00 77 09/09/17 11:00 76 09/09/17 11:00 97 Room Air 09/09/17 11:00 98.1 77 18 100/55 (70) 97 Labs: Laboratory Tests Test 09/10/17 05:10 White Blood Count 7.5 TH/MM3 (4.0-11.0) Red Blood Count 3.25 MIL/MM3 (4.50-5.90) Hemoglobin 9.8 GM/DL (13.0-17.0) Hematocrit 27.9 % (39.0-51.0) Mean Corpuscular Volume 85.8 FL (80.0-100.0) Mean Corpuscular Hemoglobin 30.1 PG (27.0-34.0) Mean Corpuscular Hemoglobin Concent 35.1 % (32.0-36.0) Red Cell Distribution Width 14.4 % (11.6-17.2) Platelet Count 138 TH/MM3 (150-450) Mean Platelet Volume 8.5 FL (7.0-11.0) Blood Urea Nitrogen 29 MG/DL (7-18) Creatinine 1.09 MG/DL (0.60-1.30) Random Glucose 108 MG/DL (74-106) Calcium Level 8.1 MG/DL (8.5-10.1) Sodium Level 139 MEQ/L (136-145) Potassium Level 3.7 MEQ/L (3.5-5.1) Chloride Level 102 MEQ/L (98-107) Carbon Dioxide Level 30.7 MEQ/L (21.0-32.0) Anion Gap 6 MEQ/L (5-15) Estimat Glomerular Filtration Rate 67 ML/MIN (>89) Result Diagram: 09/10/17 0510 09/10/17 0510 Cardiovascular: RRR Telemetry: NSR Pulmonary: CTA GI/: NABS, NT Incision: dry and intact CT: 50ml/12 hrs Plan: Remove chest tubes Encourage ambulation CXR in AM Probable d/c in tomorrow (1) Chronic pain Plan: pt wants to hold on starting fentanly patch IV prn fentanly (2) Coronary artery disease Plan: ASA, statin BB amiodarone (3) Aortic stenosis (4) S/P AVR (aortic valve replacement) (5) S/P CABG x 1 Plan: ASA, statin , BB , amiodarone pulm toileting OOB, ambulate leave chest tubes in pain control (6) Hx of non-Hodgkin's lymphoma (7) Blood loss anemia Plan: start ferrous sulfate Caridad Bhakta MD Sep 10, 2017 10:34
[2017-09-10] MEDS: FERROUS SULFATE 325 MG (65 MG ELEMENTAL IRON) TAB PO SCH ×2 (12:00→17:00)
[2017-09-10] MEDS: TAMSULOSIN HCL 0.4 MG CAP PO SCH (21:00)
[2017-09-10] MEDS: SENNOSIDES 8.6 MG TAB PO SCH (21:00)
[2017-09-11] VITALS (17 sets, daily range): BP systolic 105–110; BP diastolic 57–60; PULSE 72–92; RESP 16; TEMP 97.9–98.6; O2SAT 93–97
--- NOTE | 2017-09-11 05:57 | RADRPT ---
EXAM DATE/TIME: 09/11/2017 04:26 [facility] COMPARISON: CHEST SINGLE AP, September 07, 2017, 4:48. INDICATIONS : Shortness of breath, possible pneumothorax. MEDICAL HISTORY : cardiac disease. SURGICAL HISTORY : CABG. ENCOUNTER: Subsequent ACUITY: 1 week PAIN SCORE: 0/10 LOCATION: Bilateral chest FINDINGS: The patient is status post sternotomy. The heart size is upper limits of normal. There is increased d ensity at the bases bilaterally. No pneumothorax is seen. The previously seen chest tubes and removed . CONCLUSION: No pneumothorax. There are bibasilar areas of consolidation or atelectasis. Kody Aldridge MD on September 11, 2017 at 5:55 Board Certified Radiologist. This report was verified electronically.
[2017-09-11] MEDS: PANTOPRAZOLE SOD 40 MG DELAYED RELEASE TAB PO SCH (06:10)
[2017-09-11] MEDS: ACETAMINOPHEN/HYDROcodone 325 MG/5 MG TAB PO PRN ×2 (06:27→09:44)
[2017-09-11] MEDS: INSULIN ASPART SUPPLEMENTAL SCALE SQ SCH ×2 (08:00→12:00)
[2017-09-11] MEDS: MAGNESIUM HYDROXIDE SUSP 30 ML CUP PO SCH (09:00)
[2017-09-11] MEDS: POLYETHYLENE GLYCOL 17 GM PKG PO SCH (09:00)
[2017-09-11] MEDS: DOCUSATE SODIUM 100 MG CAP PO SCH (09:00)
[2017-09-11] MEDS: AMIODARONE 200 MG TAB PO SCH (09:35)
[2017-09-11] MEDS: ATORVASTATIN 20 MG TAB PO SCH (09:36)
[2017-09-11] MEDS: CLOPIDOGREL 75 MG TAB PO SCH (09:36)
[2017-09-11] MEDS: MULTIVITAMINS/MINERALS THERAPEUTIC TAB PO SCH (09:36)
[2017-09-11] MEDS: METOPROLOL TARTRATE 25 MG TAB PO SCH (09:36)
[2017-09-11] MEDS: ASPIRIN 81 MG CHEW TAB PO SCH (09:37)
[2017-09-11] MEDS: SODIUM CHLORIDE 0.9% FLUSH 10 ML FLUSH IV FLUSH SCH (09:37)
[2017-09-11] MEDS ORDERED: POTASSIUM CHLORIDE 20 MEQ CONTROLLED RELEASE TAB PO ONE (10:00)
[2017-09-11] MEDS ORDERED: ASPI81 PO (11:59)
[2017-09-11] MEDS ORDERED: METO25TA3 PO (11:59)
[2017-09-11] MEDS ORDERED: TAMS5CAP PO (11:59)
[2017-09-11] MEDS ORDERED: AMIO200T PO (11:59)
[2017-09-11] MEDS ORDERED: PLAV75TA29 PO (11:59)
[2017-09-11] MEDS ORDERED: DOCU1CAP39 PO (11:59)
[2017-09-11] MEDS ORDERED: THERM PO (11:59)
[2017-09-11] MEDS ORDERED: FERR325T20 PO (11:59)
[2017-09-11] MEDS: FERROUS SULFATE 325 MG (65 MG ELEMENTAL IRON) TAB PO SCH (12:00)
--- NOTE | 2017-09-11 12:08 | HHI.DS ---
Discharge Summary Admission Date Sep 06, 2017 at 05:47 Discharge Date: Sep 11, 2017 Admitting Diagnosis 1. Severe Left Anterior Descending (LAD) Coronary Artery Disease. 2. Critical Aortic Valve Stenosis 3. Lymphoma s/p Radiation (1) Coronary artery disease ICD Codes: I25.10 - Atherosclerotic heart disease of [place] coronary artery without angina pectoris (2) Aortic stenosis Diagnosis: Principal ICD Codes: I35.0 - Nonrheumatic aortic (valve) stenosis (3) Chronic pain Diagnosis: Principal ICD Codes: G89.29 - Other chronic pain Status: Chronic (4) Blood loss anemia ICD Codes: D50.0 - Iron deficiency anemia secondary to blood loss (chronic) Status: Acute (5) Hx of non-Hodgkin's lymphoma ICD Codes: Z85.72 - Personal history of non-Hodgkin lymphomas Status: Chronic (6) S/P AVR (aortic valve replacement) Diagnosis: Secondary ICD Codes: Z95.2 - Presence of prosthetic heart valve (7) S/P CABG x 1 Diagnosis: Secondary ICD Codes: Z95.1 - Presence of aortocoronary bypass graft Procedures 1. Coronary Artery Bypass Grafting x 1 with left internal mammary artery (LORD) to left anterior descending (LAD) 09/06 2. Aortic Valve Replacement with 25 mm Medtronic Mosaic Tissue Valve Brief History 72yr / male eval by qa consultant with c/o of progressive SOB, cardiac workup leading to cardiac cath which revealed critical prox LAD stenosis , echo showed preserved LV function with severe , pt was admitted electively for CABG and AVR PMH: , CAD ( stent) , non-Hodgkins lymphoma, discitis and osteomyelitis of spine 1997, kidney stones, chronic prostatitis surgery : 09/06 1. Coronary Artery Bypass Grafting x 1 with left internal mammary artery (LORD) to left anterior descending (LAD) 2. Aortic Valve Replacement with 25 mm Medtronic Mosaic Tissue Valve CBC/BMP: 09/10/17 0510 09/10/17 0510 Significant Findings Laboratory Tests Test 09/09/17 05:00 09/10/17 05:10 Red Blood Count 2.48 MIL/MM3 (4.50-5.90) 3.25 MIL/MM3 (4.50-5.90) Hemoglobin 7.6 GM/DL (13.0-17.0) 9.8 GM/DL (13.0-17.0) Hematocrit 21.8 % (39.0-51.0) 27.9 % (39.0-51.0) Platelet Count 107 TH/MM3 (150-450) 138 TH/MM3 (150-450) Blood Urea Nitrogen 29 MG/DL (7-18) Random Glucose 108 MG/DL (74-106) Calcium Level 8.1 MG/DL (8.5-10.1) Estimat Glomerular Filtration Rate 67 ML/MIN (>89) Imaging Last Impressions Chest X-Ray 09/11/17 0600 Signed Impressions: Service Date/Time: Monday, September 11, 2017 04:26 - CONCLUSION: No pneumothorax. There are bibasilar areas of consolidation or atelectasis. Kody Aldridge MD PE at Discharge GENERAL: SKIN: Warm and dry. prevena to chest, some ecchymosis around prevena dressing , color slightly pale HEAD: Normocephalic. EYES: No scleral icterus. No injection or drainage. NECK: Supple, trachea midline. No JVD or lymphadenopathy. CARDIOVASCULAR: Regular rate and rhythm without murmurs, gallops, or rubs. RESPIRATORY: Breath sounds equal bilaterally. No accessory muscle use. diminished in bases GASTROINTESTINAL: Abdomen soft, non-tender, nondistended. MUSCULOSKELETAL: No cyanosis, or edema. BACK: Nontender without obvious deformity. No CVA tenderness. Hospital Course surgery : 09/06 1. Coronary Artery Bypass Grafting x 1 with left internal mammary artery (LORD) to left anterior descending (LAD) 2. Aortic Valve Replacement with 25 mm Medtronic Mosaic Tissue Valve extubated after surgery , crystalloid 2500cc, 500cc cell saver , EBL 1500cc, urine 1900cc 09/07 up in chair , on nasal cannula weaning off insulin gtt asking about his fentanly patch , will use prn fentanly IV today / with po meds , eval to resume patch in am OOB, pulm toileting transfer to stepdown 09/08 chest tube drained 60cc bloody drainage, will leave in today HGB 8.3/ recheck in am, start ferrous sulfate , gentle diuresis low grade temp / encourage pulm toileting OOB/ ambulate patch wants to hold on starting his fentanly patch for now 09/09/17 c/o dizziness, fatigue 09/10/17 No complaints. Feeling better post transfusion. 09/11 feels better today, on room air rhythm stable HGB 9.8 stable for discharge today Pt Condition on Discharge: Good Discharge Disposition: Disch w/ Home Health Serv Discharge Instructions DIET: Follow Instructions for: Heart Healthy Diet Activities you can perform: Weight Bearing as Kayla, Shower Only-No Bath Activities to avoid: Strenuous Activity, Driving Additional Activity Instructio: no lifting > 8 lbs or gallon of milk Follow up Referrals: Cardiology - [address] Myron Cleaning [address] [facility] [address] PCP Follow-up - 2 Weeks with [facility] - 2 Weeks with Geraldine Pino New Orders: CBC NO DIFF - 2 Weeks New Medications: Amiodarone (Amiodarone) 200 Mg Tab 200 MG PO Q12HR for heart rhythm, #28 TAB 0 Refills Aspirin (Tgt Aspirin) 81 Mg Chw 81 MG PO DAILY for Blood Clot Prevention, #30 EA 2 Refills Clopidogrel (Plavix) 75 Mg Tab 75 MG PO DAILY for Blood Clot Prevention, #30 TAB 2 Refills Docusate Sodium (Dok) 100 Mg Cap 100 MG PO BID for Constipation, #60 CAP 0 Refills Ferrous Sulfate (Ferosul) 325 Mg (65 Mg Iron) Tablet 325 MG PO BID@12,17 for anemia, #60 TAB Metoprolol Tartrate (Metoprolol Tartrate) 25 Mg Tab 12.5 MG PO BID for Blood Pressure Management, #30 TAB 2 Refills Multiple Vitamins W/ Minerals (Thera M Plus) 1 Tab 1 TAB PO DAILY for multi vitamin, #30 TAB 2 Refills Tamsulosin (Flomax) 0.4 Mg Cap 0.4 MG PO HS for urinary retention, #30 CAP 2 Refills Continued Medications: Atorvastatin (Atorvastatin) 20 Mg Tab 20 MG PO DAILY for Cholesterol Management, #30 TAB 0 Refills Diazepam (Diazepam) 5 Mg Tab 5 MG PO, TAB 0 Refills Fentanyl Patch 72 HR (Fentanyl Patch 72 HR) 50 Mcg/Hr Patch 50 MCG T-DERMAL Q72H for Pain Management, #10 PATCH 0 Refills Remove old patch when new one placed. Fluticasone Nasal [place] (Flonase Nasal [place]) 50 Mcg/Act [place] 50 MCG EACH NARE BID for Allergies, #1 BOTTLE 0 Refills Oxycodone-Acetaminophen (Oxycodone-Acetaminophen) 10-325 mg Tab 1 TAB PO Q6H PRN for PAIN, TAB 0 Refills [[place]] () [Vit C] () [Vit D] () [Vit E] () Geraldine Pino Sep 11, 2017 12:08
--- NOTE | 2017-09-16 10:42 | PQ ---
Physician Query Response Document PATIENT: ANU SCHMITZ : 1945 ADMIT DATE: 09/06/2017 5:47 AM DISCH DATE: 09/11/2017 2:45 PM RESPONDING PROVIDER #: RKhanna QUERY TEXT: Acuity Specificity BLOOD LOSS ANEMIA is documented in the Medical Record. Please specify the acuity of this condition w ith terms such as: -- Acute -- Chronic -- Acute and chronic -- Acute on chronic -- Other (please specify in the medical record) Your prompt response is appreciated, please do not hesitate to contact the CDI/Coding Hotline with an y questions, comments and/or concerns you may have at [phone]. [phone]. The patient's Clinical Indicators include: BLOOD LOSS ANEMIA-PROG NOTE 09/08, 09/09, 09/10, DISCHARGE SUMMARY BLOOD TRANSFUSION 09/09 CABG, AORTIC VALVE REPLACEMENT 09/11 EBL 1500-ANESTHESIA RECORD H Query created by: Kenyatta Villalpando on 09/14/2017 2:44 PM RESPONSE TEXT: Provider disagreed with this CDI query. not my patient Electronically signed by: Buck Dorantes MD 09/16/2017 10:39 AM
== END 2017-09-11 14:45 | disposition home or self-care (01) | DRG 221 ==
LOC: HSDI 05:47 → HCVI 13:00 → HCPC 09-07 12:34
PROVIDERS: ADMIT Thoracic Surgery (Cardiothoracic Vascular Surgery); ATTEND Thoracic Surgery (Cardiothoracic Vascular Surgery)
PROC: 02100Z9 Bypass Coronary Artery, One Artery from Left Internal Mammary, Open Approach (ICD-10-PCS; 2017-09-06)
PROC: 5A1221Z Performance of Cardiac Output, Continuous (ICD-10-PCS; 2017-09-06)
PROC: B246ZZ4 Ultrasonography of Right and Left Heart, Transesophageal (ICD-10-PCS; 2017-09-06)
PROC: 02RF08Z Replacement of Aortic Valve with Zooplastic Tissue, Open Approach (ICD-10-PCS; principal; 2017-09-06 07:39)
PROC: 30233N1 Transfusion of Nonautologous Red Blood Cells into Peripheral Vein, Percutaneous Approach (ICD-10-PCS; 2017-09-09)
DX: I35.0 Nonrheumatic aortic (valve) stenosis (principal); D50.0 Iron deficiency anemia secondary to blood loss (chronic); I10 Essential (primary) hypertension; I25.10 Atherosclerotic heart disease of native coronary artery without angina pectoris; E78.5 Hyperlipidemia, unspecified; N41.1 Chronic prostatitis; Z92.3 Personal history of irradiation; Z85.72 Personal history of non-Hodgkin lymphomas; Z88.1 Allergy status to other antibiotic agents; Z87.891 Personal history of nicotine dependence; Z92.21 Personal history of antineoplastic chemotherapy
CPT/HCPCS: 36430; 71010; 76937; 80048; 81001; 82948; 83735; 85025; 85027; 86850; 86900; 86901; 86920; 87015; 87070; 87102; 87116; 87205; 87206; 88305; 88311; 93005; 93318; 94002; 94150; 94640; 94664; 94667; 94668; C1768; C9248; J0131; J0360; J1644; J1815; J1817; J1885; J1940; J2150; J2175; J2250; J2370; J2405; J3010; J3370; J3475; J3480; J7050; J7120; P9016; P9047